=== PATIENT | male | born 1955 | race Caucasian/White ===

== ENCOUNTER → 2016-05-26 | Outpatient (CLI) | payer BC, OTHER ==
[~2016-05-26] MED LIST: CHOL100010 PO; CRS10 PO; HYDR-5688 PO; IBUP-1050 PO; LISI-461 PO; MULT-506 PO
== END | disposition home or self-care (01) ==
LOC: C.RDSM 13:25
PROVIDERS: ATTEND Physical Medicine & Rehabilitation Sports Medicine
DX: G89.18 Other acute postprocedural pain (principal); Z98.890 Other specified postprocedural states

== ENCOUNTER → 2017-05-25 | Outpatient (CLI) | payer OTHER ==
[~2017-05-25] MED LIST changes: -HYDR-5688 PO
== END | disposition home or self-care (01) ==
LOC: C.RDSM 08:00
PROVIDERS: ATTEND Physical Medicine & Rehabilitation Sports Medicine
DX: Z96.659 Presence of unspecified artificial knee joint (principal); Z96.612 Presence of left artificial shoulder joint